=== PATIENT | male | born 1970 | race Caucasian/White ===

== ENCOUNTER → 2018-04-01 16:54 | Outpatient (CLI) | payer SELFPAY ==
[2018-04-01 18:06] LABS: Urine Drug scr, USCG NIDA See Separate Report
== END ==
DX: Z01.89 Encounter for other specified special examinations (principal)
CPT/HCPCS: 81099

== ENCOUNTER → 2019-03-02 16:27 | Outpatient (ROUT) | payer OTHER, SELFPAY ==
[2019-03-02 16:30] LABS: Bacteria Urine None Seen; RBC Urine None Seen (0-5/HPF)
[2019-03-02 16:42] LABS: Appearance Urine UA CLEAR; Bilirubin Urine UA NEGATIVE (NEGATIVE); Color Urine UA YELLOW; Glucose Urine UA NEGATIVE (Negative); Ketones Urine UA NEGATIVE (NEGATIVE); Leukocyte Esterase Urine UA NEGATIVE (NEGATIVE); Nitrite Urine UA NEGATIVE (Negative); Occult Blood Urine UA NEGATIVE (Negative); Protein Urine UA NEGATIVE (Negative); Urobilinogen Urine UA 0.2 E.U./dL (0.2)
[2019-03-02 17:05] LABS: Culture Indicated Urine Cult Not Indicated; Squamous Epithelial Cell Urine 0-1 /HPF (0-5/HPF); WBC Urine 0-1/HPF (0-5/HPF)
== END ==
PROVIDERS: Visit Provider Internal Medicine
DX: E10.9 Type 1 diabetes mellitus without complications (principal)
CPT/HCPCS: 81001

== ENCOUNTER → 2019-03-09 11:06 | Outpatient (CLI) | payer OTHER, SELFPAY ==
--- NOTE | 2019-03-09 | DI.US.S_ITS ---
PROCEDURE: US ABDOMEN COMPLETE INDICATIONS: ABN LFT'S TECHNIQUE: Real-time scanning was performed of the abdominal and retroperitoneal organs, with image documentation. COMPARISON: None. FINDINGS: Liver: The liver demonstrates normal size. The liver demonstrates generalized increased echogenicity. This decreases ultrasound sensitivity for detection of hepatic masses. Gallbladder: When comparison is made with the prior examination, these findings are similar. Biliary ducts: Intrahepatic bile ducts are non-dilated. Extrahepatic bile duct caliber measures 5-6 mm. Normal is 6-7 mm or less in diameter, or 10 mm or less post-cholecystectomy. Pancreas: Visualized portions of the pancreas are sonographically normal. Spleen: Spleen is normal in size and homogeneous in echotexture. Kidneys: Kidneys are normal in size and echotexture. Right kidney measures 11.5 cm long; left kidney measures 11.9 cm long. No hydronephrosis or nephrolithiasis. No solid masses. The renal cortex measures within normal limits for thickness. Aorta: Visualized aorta is normal in caliber at less than 3 cm. Iliacs: Proximal common iliac arteries are normal in caliber at less than 2.5 cm. IVC: Intrahepatic inferior vena cava is patent. Miscellaneous: No free abdominal fluid. IMPRESSION: The liver demonstrates increased echogenicity. This finding is nonspecific, yet it is most commonly attributed to fatty infiltration. The Dictated by: Nathanael Ortega M.D. on 03/09/2019 at 14:28 Approved by: Nathanael Ortega M.D. on 03/09/2019 at 14:29
== END ==
PROVIDERS: PCP Internal Medicine; Visit Provider Internal Medicine
DX: R79.89 Other specified abnormal findings of blood chemistry (principal)
CPT/HCPCS: 76700

== ENCOUNTER → 2019-03-16 09:02 | Outpatient (CLI) | payer OTHER, SELFPAY ==
[2019-03-16 10:31] LABS: Albumin 4.3 g/dL (3.5-5.0); Alkaline Phosphatase 171 U/L (38-126); Bilirubin Unconjugated 0.7 mg/dL (0.0-1.1); C-Reactive Protein Quant 0.6 mg/dL (<1.0); Globulin 4.4 g/dL (1.7-4.1); HEMOLYSIS < 15 (0-50); Total Protein 8.7 g/dL (6.3-8.2)
[2019-03-16 10:34] LABS: Erythrocyte Sedimentation Rate 71 MM/HR (0-15)
[2019-03-16 10:36] LABS: Alanine Aminotransferase 1315 IU/L (<50)
[2019-03-16 10:37] LABS: Aspartate Aminotransferase 791 IU/L (17-59)
[2019-03-16 11:45] LABS: TSH w/ Reflex to FT4 2.03 uIU/mL (0.47-4.68)
[2019-03-16 15:47] LABS: Add Manual Diff / Slide Review NO; Basophils Absolute Auto 100 /uL (0-100); Basophils Percent Auto 2.9 % (0-2); Eosinophils Absolute Auto 100 /uL (0-450); Eosinophils Percent Auto 3.7 % (2-4); Hematocrit 35.7 % (41-53); Hemoglobin 12.4 g/dL (13.5-17.5); Lymphocytes Absolute Auto 1000 /uL (1100-4500); Lymphocytes Percent Auto 34.8 % (25-40); Mean Corpuscular HGB Conc 34.9 % (30-36); Mean Corpuscular Hemoglobin 32.8 PG (26-34); Mean Corpuscular Volume 94.2 fL (80-100); Monocytes Absolute Auto 500 /uL (0-900); Monocytes Percent Auto 17.6 % (3-14); Neutrophils Absolute Auto 1200 /uL (1500-7000); Platelet Count 238 X10^3/uL (150-400); Red Blood Cell Count 3.79 X10^6/uL (4.5-5.9); Red Cell Distribution Width 13.2 % (11.6-14.8); White Blood Cell Count 2.9 X10^3/uL (4.5-11.0)
[2019-03-19 08:11] LABS: Hepatitis A Antibody IgM NONREACTIVE; Hepatitis Acute Panel Interp 0.09; Hepatitis B Core Antibody IgM NONREACTIVE; Hepatitis B Surface Antigen NONREACTIVE; Hepatitis C Antibody NONREACTIVE
[2019-03-24 08:30] LABS: ANA Pattern MITOTIC, CHROMOSOMAL; ANA Screen, IFA POSITIVE (NEGATIVE)
== END ==
PROVIDERS: PCP Internal Medicine; Visit Provider Internal Medicine
DX: R94.5 Abnormal results of liver function studies (principal)
CPT/HCPCS: 36415; 80074; 80076; 84443; 85025; 85651; 86038; 86140

== ENCOUNTER → 2019-03-18 08:57 | Outpatient (CLI) | payer OTHER, SELFPAY ==
[2019-03-18 09:56] LABS: Albumin 4.3 g/dL (3.5-5.0); Alkaline Phosphatase 159 U/L (38-126); Bilirubin Total 0.9 mg/dL (0.2-1.3); Bilirubin Unconjugated 0.6 mg/dL (0.0-1.1); Globulin 4.2 g/dL (1.7-4.1); HEMOLYSIS < 15 (0-50); Total Protein 8.5 g/dL (6.3-8.2)
[2019-03-18 10:11] LABS: Alanine Aminotransferase 1397 IU/L (<50); Aspartate Aminotransferase 834 IU/L (17-59)
== END ==
PROVIDERS: PCP Internal Medicine; Visit Provider Internal Medicine
DX: R94.5 Abnormal results of liver function studies (principal)
CPT/HCPCS: 36415; 80076

== ENCOUNTER → 2019-03-25 08:14 | Outpatient (CLI) | payer OTHER, SELFPAY ==
[2019-03-25 08:59] LABS: Albumin 4.5 g/dL (3.5-5.0); Alkaline Phosphatase 196 U/L (38-126); Bilirubin Total 1.4 mg/dL (0.2-1.3); Bilirubin Unconjugated 0.9 mg/dL (0.0-1.1); Globulin 4.7 g/dL (1.7-4.1); HEMOLYSIS < 15 (0-50); Total Protein 9.2 g/dL (6.3-8.2)
[2019-03-25 09:14] LABS: Erythrocyte Sedimentation Rate 54 MM/HR (0-15)
[2019-03-25 09:31] LABS: Alanine Aminotransferase 2178 IU/L (<50)
[2019-03-25 09:45] LABS: Aspartate Aminotransferase 1470 IU/L (17-59)
== END ==
PROVIDERS: PCP Internal Medicine; Referring Provider Internal Medicine; Visit Provider Internal Medicine
DX: R94.5 Abnormal results of liver function studies (principal)
CPT/HCPCS: 36415; 80076; 85651

== ENCOUNTER → 2019-03-31 09:00 | Outpatient (CLI) | payer OTHER, SELFPAY ==
[2019-03-31 10:28] LABS: INR 1.1 (0.9-1.3)
[2019-03-31 10:38] LABS: Albumin 4.5 g/dL (3.5-5.0); Albumin Globulin Ratio 0.9 (1.0-2.8); Alkaline Phosphatase 182 U/L (38-126); Bilirubin Total 1.6 mg/dL (0.2-1.3); Bilirubin Unconjugated 1.1 mg/dL (0.0-1.1); Globulin 4.9 g/dL (1.7-4.1); HEMOLYSIS < 15 (0-50); Total Protein 9.4 g/dL (6.3-8.2)
[2019-03-31 11:02] LABS: Erythrocyte Sedimentation Rate 80 MM/HR (0-15)
[2019-03-31 11:05] LABS: Alanine Aminotransferase 2725 IU/L (<50); Aspartate Aminotransferase 1654 IU/L (17-59)
== END ==
PROVIDERS: PCP Internal Medicine; Referring Provider Internal Medicine; Visit Provider Internal Medicine
DX: R94.5 Abnormal results of liver function studies (principal); K75.4 Autoimmune hepatitis
CPT/HCPCS: 36415; 80076; 85610; 85651

== ENCOUNTER → 2019-04-13 07:39 | Outpatient (CLI) | payer OTHER, SELFPAY ==
[2019-04-13 08:53] LABS: Alanine Aminotransferase 593 IU/L (<50); Albumin 4.1 g/dL (3.5-5.0); Alkaline Phosphatase 150 U/L (38-126); Aspartate Aminotransferase 140 IU/L (17-59); Bilirubin Total 0.6 mg/dL (0.2-1.3); Bilirubin Unconjugated 0.4 mg/dL (0.0-1.1); Globulin 4.2 g/dL (1.7-4.1); HEMOLYSIS < 15 (0-50); Total Protein 8.3 g/dL (6.3-8.2)
== END ==
PROVIDERS: PCP Internal Medicine; Referring Provider Internal Medicine Gastroenterology; Visit Provider Internal Medicine Gastroenterology
DX: R79.89 Other specified abnormal findings of blood chemistry (principal)
CPT/HCPCS: 36415; 80076; 83516; 86376

== ENCOUNTER → 2020-02-28 13:41 | Outpatient (CLI) | payer OTHER, SELFPAY ==
[2020-02-28 14:51] LABS: COVID19 -Nasal RAPID Negative (Negative)
== END ==
PROVIDERS: Visit Provider Physician Assistant
DX: Z20.822 Contact with and (suspected) exposure to COVID-19 (principal)
CPT/HCPCS: 87635

== ENCOUNTER 2020-03-01 09:16 | Day surgery (SDC) | payer OTHER, SELFPAY ==
[2020-03-01] VITALS (10 sets, daily range): BP systolic 97–134; BP diastolic 53–81; PULSE 46–58; RESP 10–16; TEMP 36.2–36.9; O2SAT 97–100; BMI 26.6
--- NOTE | 2020-03-01 | PATH_ITS ---
[facility] Accession Number: [id number] . 01 Material submitted: . sigmoid colon - SIGMOID POLYP AT 15 CM . 02 Diagnosis: Sigmoid Colon Polyp at 15 cm, Biopsy: Tubular adenoma. MRV 03/06/2020 1045 Local . 02 Electronically signed: . Adonay Fajardo MD, PhD, Pathologist NPI- [id number] . 01 Gross description: . SIGMOID POLYP AT 15 CM: Received in formalin are multiple fragment(s) of sanabria, soft tissue measuring 0.1 x 0.1 x 0.1 cm to 0.7 x 0.6 x 0.6 cm submitted entirely in 1 cassette(s) /ARAM 03/02/20202022 Local . 02 Pathologist provided ICD-10: D12.5 . 02 CPT . 262138 Performed at: 01 [facility] [address] [id number] MD Jean Claude Horne MD Phone: [phone] Performed at: [facility] [place] [address] [place], [place] [id number] MD Any Gandhi MD Phone: [phone]
[2020-03-01] MEDS: SODIUM CHLORIDE 0.9% 1,000 ML 84 ML IV (10:21)
[2020-03-01] MEDS: fentaNYL 250 MCG/5 ML INJ IV (10:31)
--- NOTE | 2020-03-01 10:31 | PM.HP.1 ---
History of Present Illness History of Present Illness Date Patient Seen: 03/01/20 Chief complaint: SDC Narrative: Positive Cologuard Patient History Medical History (Updated 03/01/20 @ 10:31 by Lukas Galeas MD) Diabetes Family & Social History Social History: household members none Tobacco & Substance use: Smoking Status Never smoker alcohol intake frequency holiday/special occasion Substance Use Type marijuana Meds Home Medications and Allergies Home Medications Medication Instructions Recorded Confirmed Type insulin degludec 100 unit/mL (3 10 unit SUBCUT DAILY 04/01/18 03/01/20 History mL) subcutaneous pen azathioprine 50 mg PO DAILY 03/01/20 03/01/20 History insulin aspart U-100 [Novolog See Rx Instructions .ROUTE .COMPLEX 03/01/20 03/01/20 History Flexpen U-100 Insulin] prednisone 20 mg PO DAILY 03/01/20 03/01/20 History Allergies Allergy/AdvReac Type Severity Reaction Status Date / Time No Known Drug Allergies Allergy Verified 03/01/20 10:02 Exam Vital Signs (past 8 hours): - 03/01/20 10:11 Temperature 97.8 F Pulse Rate 54 L Respiratory Rate 16 Blood Pressure 134/81 Pulse Oximetry 100 Oxygen Delivery Method Room Air Narrative Exam Narrative: Oropharynx free of lesions Chest clear to auscultation percussion Cardiac exam reveals no S3 or murmur Assessment & Plan Assessment & Plan narrative: Positive Cologuard. Need for follow-up colonoscopy. Risks, benefits, alternatives have been explained.
--- NOTE | 2020-03-01 10:32 | PM.OP.ENDO ---
Operative Date/Time/Diagnoses Date of procedure: 03/01/20 Pre-op diagnosis: See indication and findings Procedure & Clinicians Study performed: Colonoscopy Same procedure as scheduled: Yes Indications: Positive Cologuard Surgeon: Lukas Galeas Procedure Notes Procedure in detail: After informed consent was obtained the patient was placed in left lateral decubitus position. The video colonoscope was introduced the rectum slowly advanced cecum. Preparation was good. On slow withdrawal mucosa was carefully examined. The scope was removed. The patient tolerated procedure well. Blood loss none Complications none Sedation Total sedation time 24 minutes Versed 8 mg fentanyl 100 mg IV titration Findings 1. Scattered sigmoid and left-sided diverticulosis 2. 12 mm pedunculated polyp at 15 cm. The stalk was injected with spot for tattooing and tamponade. The polyp was then excised with the hot snare. 3. Otherwise negative colonoscopy to cecum Will follow up with pathology results. He will need follow-up colonoscopy in 3 years. We will draw LFTs today to follow-up on his autoimmune hepatitis.
[2020-03-01] MEDS: MIDAZOLAM 5 MG/5 ML VIAL IV (10:45)
--- NOTE | 2020-03-01 11:38 | SUR.PHASEI ---
lab at bedside to draw blood for LFTs
--- NOTE | 2020-03-01 12:24 | SUR.PHASEII ---
1210- Pt dcd via wc in stable condition with no c/o.
[2020-03-01 12:53] LABS: Alanine Aminotransferase 96 IU/L (<50); Albumin 3.4 g/dL (3.5-5.0); Albumin Globulin Ratio 1.3 (1.0-2.8); Alkaline Phosphatase 69 U/L (38-126); Aspartate Aminotransferase 70 IU/L (17-59); Bilirubin Total 0.3 mg/dL (0.2-1.3); Bilirubin Unconjugated 0.4 mg/dL (0.0-1.1); Globulin 2.6 g/dL (1.7-4.1); HEMOLYSIS < 15 (0-50)
== END 2020-03-01 12:10 | disposition home or self-care (01) ==
PROVIDERS: PCP Family Medicine; Referring Provider Family Medicine; Visit Provider Internal Medicine Gastroenterology
PROC: 0DJD8ZZ Inspection of Lower Intestinal Tract, Via Natural or Artificial Opening Endoscopic (ICD-10-PCS; CPT 45378; principal; 2020-03-01 10:30)
DX: D12.5 Benign neoplasm of sigmoid colon (principal); E11.9 Type 2 diabetes mellitus without complications; Z79.4 Long term (current) use of insulin; K57.30 Diverticulosis of large intestine without perforation or abscess without bleeding
CPT/HCPCS: 45381; 45385; 36415; 80076; J2250; J3010

== ENCOUNTER → 2020-05-19 10:27 | Outpatient (CLI) | payer OTHER, SELFPAY ==
[2020-05-19] MEDS: COVID-19 VACC #1, MRNA(MOD) 100 MCG/0.5 ML VIAL IM (10:37)
== END ==
PROVIDERS: PCP Family Medicine; Visit Provider Internal Medicine
DX: Z23 Encounter for immunization (principal)
CPT/HCPCS: 0011A; 91301

== ENCOUNTER → 2020-06-16 09:07 | Outpatient (CLI) | payer OTHER, SELFPAY ==
[2020-06-16] MEDS: COVID-19 VACC #2, MRNA(MOD) 100 MCG/0.5 ML VIAL IM (09:12)
== END ==
PROVIDERS: PCP Family Medicine; Visit Provider Internal Medicine
DX: Z23 Encounter for immunization (principal)
CPT/HCPCS: 0012A; 91301